=== PATIENT | male | born 1960 | race Caucasian/White ===

== ENCOUNTER 2021-03-04 16:52 | Outpatient (CLI) | payer MEDICAID, SELFPAY ==
--- NOTE | 2021-03-04 17:02 | RAD_ITS ---
STUDY: X-RAY - RIGHT KNEE REASON FOR EXAM: Male, 60 years old. Knee pain. TECHNIQUE: 2 view(s) of the knee. COMPARISON: None. FINDINGS: Mild osteopenia. Normal visualized distal femur. Normal visualized proximal tibia and fibula. Normal proximal tibiofibular articulation. Mild medial compartmental narrowing with no osteophytes. Normal lateral femorotibial compartment. Normal patellofemoral articulation. Vascular calcification. RAD/Knee 1 or 2 Views IMPRESSION: Osteopenia with mild medial compartmental arthrosis. No acute abnormality, chondrocalcinosis or erosive changes. Electronically Signed: Yeyo Howell MD at 9:54 EST , Service support ,
--- NOTE | 2021-03-04 17:10 | RAD_ITS ---
STUDY: X-RAY - LEFT KNEE REASON FOR EXAM: Male, 60 years old. Knee pain. TECHNIQUE: 2 view(s) of the knee. COMPARISON: None. FINDINGS: Mild osteopenia. Normal visualized distal femur. Normal visualized proximal tibia and fibula. Normal proximal tibiofibular articulation. Moderate medial compartmental arthrosis. Normal lateral femorotibial compartment. Normal patellofemoral articulation. Vascular calcification and clips likely from saphenous vein graft harvest. RAD/Knee 1 or 2 Views IMPRESSION: Osteopenia with mild medial compartmental arthrosis. No acute abnormality, chondrocalcinosis or erosive changes. Electronically Signed: Yeyo Howell MD at 9:55 EST , Service support ,
== END 2021-03-04 23:59 | disposition short-term general hospital (02) ==
LOC: RAD 17:01
PROVIDERS: PCP Internal Medicine; Referring Provider Anesthesiology Pain Medicine; Visit Provider Anesthesiology Pain Medicine
DX: M17.0 Bilateral primary osteoarthritis of knee (principal)
CPT/HCPCS: 73560

== ENCOUNTER 2021-04-14 12:31 | Outpatient (CLI) | payer MEDICAID, SELFPAY ==
--- NOTE | 2021-04-14 12:41 | RAD_ITS ---
STUDY: X-RAY - ORBITS REASON FOR EXAM: Male, 60 years old. HX METAL TO EYE; PRE MRI TECHNIQUE: 2 view(s) of the orbits were obtained. COMPARISON: None. FINDINGS: Normal bilateral orbits without a metallic orbital foreign body. Normal visualized facial bones. Normal paranasal sinuses. The soft tissue structures are unremarkable. RAD/Orbits for Foreign Body IMPRESSION: No demonstrated metallic orbital foreign body. The patient is cleared for an MRI examination. Electronically Signed: Corey Austin MD at 12:58 EST ,
--- NOTE | 2021-04-14 12:50 | MRI_ITS ---
HISTORY: Back and leg pain. TECHNIQUE: Multiplanar and multisequence MR images of the lumbar spine. IV Contrast dosage and agent: None. # of images incl. paperwork: 131. COMPARISON: None. FINDINGS: VERTEBRAE: Chronic mild anterior wedging of T11 and T12 with mild degenerative endplate changes of T11-12 and T12-L1. Lumbar vertebral body heights maintained. Mild degenerative bone marrow endplate change of L2-3. ALIGNMENT: No significant anterior or posterior subluxation. CONUS: Normal morphology and position at T12-L1. SOFT TISSUES: No paraspinal fluid collection. INTERVERTEBRAL DISCS: Multilevel degenerative changes with mild posterior disc bulge osteophyte complexes and facet arthropathy, superimposed on a developmentally narrow spinal canal. T12-L1: Minimal narrowing of the thecal sac. Mild bilateral foraminal narrowing. L1-2: Mild central canal stenosis. Moderate left foraminal narrowing with abutment of the left L1 nerve root. Mild right foraminal narrowing. L2-3:Moderate-severe central canal stenosis. Moderate left foraminal narrowing with abutment of the left L2 nerve root. Moderate right foraminal narrowing. L3-4: Moderate central canal stenosis with bilateral foraminal narrowing. L4-5: Minimal narrowing of the thecal sac. Mild left and moderate right foraminal narrowing. L5-S1: No significant central canal stenosis. Moderate bilateral foraminal narrowing with abutment of the bilateral L5 nerve roots. MRI/Spine Lumbar (Routine) IMPRESSION: Multilevel degenerative disc disease with spinal canal stenosis as described above. at 1442 Reported and signed by: Lesvia Del Valle MD Electronically Signed: Lesvia Del Valle MD at 14:41 EST ,
== END 2021-04-14 23:59 | disposition home or self-care (01) ==
LOC: MRI 12:33
PROVIDERS: PCP Internal Medicine; Referring Provider Anesthesiology Pain Medicine; Visit Provider Anesthesiology Pain Medicine
DX: M54.9 Dorsalgia, unspecified (principal); M79.606 Pain in leg, unspecified
CPT/HCPCS: 70030; 72148